=== PATIENT | female | born 1995 | race Caucasian/White ===

== ENCOUNTER → 2023-08-30 12:32 | Outpatient (CLI) | payer BC, SELFPAY ==
[2023-09-01 22:36] LABS: Chlamydia trachomatis Negative (Negative); Mycoplasma genitalium Negative (Negative); Neisseria gonorrhoeae Negative (Negative)
== END ==
PROVIDERS: PCP Family Medicine; Visit Provider Family Medicine
DX: Z11.3 Encounter for screening for infections with a predominantly sexual mode of transmission (principal)
CPT/HCPCS: 87491; 87563; 87591

== ENCOUNTER → 2024-12-22 08:05 | Outpatient (CLI) | payer OTHER, SELFPAY ==
[2024-12-22 09:31] LABS: TSH w/ Reflex to FT4 1.92 uIU/mL (0.47-4.68)
== END ==
PROVIDERS: PCP Family Medicine; Referring Provider Family Medicine; Visit Provider Family Medicine
DX: E03.9 Hypothyroidism, unspecified (principal)
CPT/HCPCS: 36415; 84443